=== PATIENT | male | born 1980 | race Hispanic/Latino ===

== ENCOUNTER 2022-03-21 09:11 | Emergency (ER) | payer OTHER ==
--- OUTSIDE RECORDS SUMMARY | 2022-03-21 09:20 | XMS REPORT | Continuity of Care Document ---
:[address] [facility] t Address [address] [place] [address] Care Team Providers Name Role Phone Joe Melgoza Attending Clinician Unavailable Kai Lee Attending Clinician Payers Payer Name Policy Type Policy Number Effective Date Expiration Date S jeison De Kalb Davonte [id number] 2022 2022 [facility] MCR 00:00:00 00:00:00 Spirit - C HI [facility] Problems Condition Condition Condition Status Onset Resolution Last Treating Co mments Source Name Details Category Date Date Treatment Clinician Date LT LEG LT LEG Diagnosis Active 2017-02-07 Me moria Active 11-27 10:37:00 l 11/27/2016 11:45: Bal[place]ond [facility] [place] POST POST Diagnosis Active 2016-11-29 Mem oria ACCIDENT ACCIDENT 11-27 14:22:00 l DRUG DRUG 09:00: Harry SCREEN SCREEN 00 Active 11/27/2016 [facility] [id number] Pain in Problem Commo n left ankle Spirit and joints - CHI of left foot [facility] [id number] Left sided Problem Com mon sciatica Spirit - [facility] [id number] Adult BMI Problem Com mon 45.0-49.9 Spirit kg/sq m - [facility] [id number] HTN, goal Problem Comm on below Spirit 140/90 - [facility] [id number] Peripheral Problem Com mon polyneurop Spirit athy - [facility] [id number] Type 2 Problem Common diabetes Spirit mellitus - CHI with other [facility] complicati [facility] Center [id number] 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 - CHI insulin [facility] [id number] Noncomplia Problem Co mmon nce with Spirit dietary - CHI restrictio [facility] [id number] Mixed Problem Common hyperlipid Spirit emia - CHI [facility] [id number] Vitamin D Problem Comm on deficiency Spirit disease - CHI [facility] [id number] Type 2 [place] [address] diabetes Spirit mellitus - CHI with other [facility] complicati Center on [id number] Hypertrigl Problem Co mmon yceridemia Spirit - [facility] [id number] History of Problem Co mmon diabetes Spirit with - CHI ketoacidos [facility] [id number] Subclinica Problem Com mon l Spirit hypothyroi - CHI dism [facility] [id number] Body mass Problem Com mon index Spirit [BMI] - CHI 32.0-32.9, [facility] 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 History of Past Illness Condition Condition Condition Status Onset Resolution Last Treating Co mments Source Name Details Category Date Date Treatment Clinician Date Unspecifie Unspecifi Problem 2016-2016-11-30 2016-11-30 Memoria d fall, ed fall, 11-27 00:33:42 00:33:42 l initial initial 05:00: Warrior encounter encounter 00 11/27/2016 11/30/2016 [facility] Sprain of Sprain of Problem 2016-2016-11-30 2016-11-30 Memoria unspecifie unspecifie 11-27 00:33:42 00:33:42 l d ligament d ligament 05:00: He rmann of left of left 00 ankle, ankle, initial initial encounter encounter 11/27/2016 11/30/2016 [facility] Allergies, Adverse Reactions, Alerts Allergy Allergy Status Severity Reaction(s) Onset Inactive Treating Comm ents Source Name Type Date Date Clinician 04437 Drug Active Unknown Common allergy [facility] Social History Social Habit Start Date Stop Date Quantity Comments Source Sex Assigned At Common Sp adali - [facility] History of Tobacco Common Spirit - Use [facility] Social History 2016-11-27 2016-11-27 Jacquelin reyes 17:31:02 17:31:02 Smoking Status Start Date Stop Date Source Never Smoker [facility] Medications Ordered Filled Start Stop Current Ordering Indication Dosage Frequency Signature Comments Components Source Medication Medication Date Date Medication? Clinician (SIG) Name Name ibuprofen No 600 mg = 1 Me moria 600 mg oral 11-27 tab, PO, l tablet 18:42: Q6H, PRN Harry 00 Pain, take with food, # 12 tab, 0 Refill(s) Acetaminoph No 1 tab, PO, Memoria en 300 MG / 11-27 Q4H, PRN l Codeine 18:42: for pain, Chanel nn Phosphate 00 # 12 tab, 30 MG Oral 0 Tablet Refill(s) [Tylenol with Codeine #3] Acetaminoph No Notes: Ricardo mae en 325 MG / 11-27 (Same as: l Hydrocodone 17:52: Brady Chanel nn Bitartrate 00 325/5) Do 5 MG Oral not exceed Tablet 4gm/day of acetaminop hen. Ketorolac No 4 days Memor ia 11-27 l 17:52: MEDICATION Warrior 00 WASTE Product Size: 30 mg Product Wasted: ___ mg Ibuprofen No Notes: Memori a 11-27 (Same as: l 17:18: Motrin) Harry 00 "Do Not Crush" Take with food. NovoLOG NovoLOG No TID NovoLOG FlexPen 100 FlexPen 100 FlexPen UNIT/ML UNIT/ML 100 UNIT/ML Triamterene Triamterene No QD Triamteren -HCTZ -HCTZ e-HCTZ 37.5-25 MG 37.5-25 MG 37.5-25 MG Fenofibrate Fenofibrate No 1{table QD Fenofibrat 145 MG 145 MG t_with_ e 145 MG food} Lisinopril Lisinopril No 1{table QD Lisinopril 5 MG 5 MG t} 5 MG Vitamin D3 Vitamin D3 No 1{table QD Vitamin D3 1000 UNIT 1000 UNIT t} 1000 UNIT NovoLOG NovoLOG No TID NovoLOG FlexPen 100 FlexPen 100 FlexPen UNIT/ML UNIT/ML 100 UNIT/ML NovoLOG Mix NovoLOG Mix No QD NovoLOG 70/30 70/30 Mix 70/30 FlexPen FlexPen FlexPen (70-30) 100 (70-30) 100 (70-30) UNIT/ML UNIT/ML 100 UNIT/ML Vitamin B12 Vitamin B12 No 1{table QD Vitamin 1000 MCG 1000 MCG t} B12 1000 MCG Allopurinol Allopurinol No QD Allopurino 300 MG 300 MG l 300 MG Fluconazole Fluconazole No Fluconazol 100 MG 100 MG e 100 MG Atorvastati Atorvastati No 1{table QD Atorvastat n Calcium n Calcium t} in Calcium 10 MG 10 MG 10 MG Victoza 18 Victoza 18 No QD Victoza 18 MG/3ML MG/3ML MG/3ML Colchicine Colchicine No 1{table QD Colchicine 0.6 MG 0.6 MG t} 0.6 MG Vitamin D3 Vitamin D3 No 1{capsu Vitamin D3 76354 UNIT 71477 UNIT le} 38590 UNIT Gabapentin Gabapentin No 1{capsu BID Gabapentin 600 MG 600 MG le} 600 MG Lisinopril Lisinopril No 1{table QD Lisinopril 5 MG 5 MG t} 5 MG Vitamin D3 Vitamin D3 No 1{table QD Vitamin D3 1000 UNIT 1000 UNIT t} 1000 UNIT NovoLOG NovoLOG No TID NovoLOG FlexPen 100 FlexPen 100 FlexPen UNIT/ML UNIT/ML 100 UNIT/ML NovoLOG Mix NovoLOG Mix No QD NovoLOG 70/30 70/30 Mix 70/30 FlexPen FlexPen FlexPen (70-30) 100 (70-30) 100 (70-30) UNIT/ML UNIT/ML 100 UNIT/ML Vitamin B12 Vitamin B12 No 1{table QD Vitamin 1000 MCG 1000 MCG t} B12 1000 MCG Allopurinol Allopurinol No QD Allopurino 300 MG 300 MG l 300 MG Fluconazole Fluconazole No Fluconazol 100 MG 100 MG e 100 MG Atorvastati Atorvastati No 1{table QD Atorvastat n Calcium n Calcium t} in Calcium 10 MG 10 MG 10 MG Victoza 18 Victoza 18 No QD Victoza 18 MG/3ML MG/3ML MG/3ML Colchicine Colchicine No 1{table QD Colchicine 0.6 MG 0.6 MG t} 0.6 MG Vitamin D3 Vitamin D3 No 1{capsu Vitamin D3 56418 UNIT 67971 UNIT le} 78869 UNIT Gabapentin Gabapentin No 1{capsu BID Gabapentin 600 MG 600 MG le} 600 MG Lisinopril Lisinopril No 1{table QD Lisinopril 5 MG 5 MG t} 5 MG Vitamin D3 Vitamin D3 No 1{table QD Vitamin D3 1000 UNIT 1000 UNIT t} 1000 UNIT NovoLOG NovoLOG No TID NovoLOG FlexPen 100 FlexPen 100 FlexPen UNIT/ML UNIT/ML 100 UNIT/ML NovoLOG Mix NovoLOG Mix No QD NovoLOG 70/30 70/30 Mix 70/30 FlexPen FlexPen FlexPen (70-30) 100 (70-30) 100 (70-30) UNIT/ML UNIT/ML 100 UNIT/ML Vitamin B12 Vitamin B12 No 1{table QD Vitamin 1000 MCG 1000 MCG t} B12 1000 MCG Allopurinol Allopurinol No QD Allopurino 300 MG 300 MG l 300 MG Fluconazole Fluconazole No Fluconazol 100 MG 100 MG e 100 MG Atorvastati Atorvastati No 1{table QD Atorvastat n Calcium n Calcium t} in Calcium 10 MG 10 MG 10 MG Victoza 18 Victoza 18 No QD Victoza 18 MG/3ML MG/3ML MG/3ML Colchicine Colchicine No 1{table QD Colchicine 0.6 MG 0.6 MG t} 0.6 MG Vitamin D3 Vitamin D3 No 1{capsu Vitamin D3 83817 UNIT 34864 UNIT le} 67092 UNIT Gabapentin Gabapentin No 1{capsu BID Gabapentin 600 MG 600 MG le} 600 MG Vitamin D3 Vitamin D3 No 1{capsu Vitamin D3 78320 UNIT 20156 UNIT le} 55240 UNIT Gabapentin Gabapentin No 1{capsu TID Gabapentin 300 MG 300 MG le} 300 MG Fluconazole Fluconazole No Fluconazol 100 MG 100 MG e 100 MG Colchicine Colchicine No 1{table QD Colchicine 0.6 MG 0.6 MG t} 0.6 MG Vitamin B12 Vitamin B12 No 1{table QD Vitamin 1000 MCG 1000 MCG t} B12 1000 MCG Victoza 18 Victoza 18 No QD Victoza 18 MG/3ML MG/3ML MG/3ML Allopurinol Allopurinol No QD Allopurino 300 MG 300 MG l 300 MG Vitamin D3 Vitamin D3 No 1{table QD Vitamin D3 1000 UNIT 1000 UNIT t} 1000 UNIT NovoLOG Mix NovoLOG Mix No QD NovoLOG 70/30 70/30 Mix 70/30 FlexPen FlexPen FlexPen (70-30) 100 (70-30) 100 (70-30) UNIT/ML UNIT/ML 100 UNIT/ML Atorvastati Atorvastati No 1{table QD Atorvastat n Calcium n Calcium t} in Calcium 80 MG 80 MG 80 MG amLODIPine amLODIPine No QD amLODIPine Besylate 10 Besylate 10 Besylate MG MG 10 MG Lisinopril Lisinopril No 1{table QD Lisinopril 2.5 MG 2.5 MG t} 2.5 MG NovoLOG NovoLOG No TID NovoLOG FlexPen 100 FlexPen 100 FlexPen UNIT/ML UNIT/ML 100 UNIT/ML Triamterene Triamterene No QD Triamteren -HCTZ -HCTZ e-HCTZ 37.5-25 MG 37.5-25 MG 37.5-25 MG Fenofibrate Fenofibrate No 1{table QD Fenofibrat 145 MG 145 MG t_with_ e 145 MG food} Victoza 18 Victoza 18 No QD Victoza 18 MG/3ML MG/3ML MG/3ML NovoLOG NovoLOG No TID NovoLOG FlexPen 100 FlexPen 100 FlexPen UNIT/ML UNIT/ML 100 UNIT/ML Lisinopril Lisinopril No 1{table QD Lisinopril 2.5 MG 2.5 MG t} 2.5 MG Vitamin D3 Vitamin D3 No 1{table QD Vitamin D3 1000 UNIT 1000 UNIT t} 1000 UNIT Vitamin B12 Vitamin B12 No 1{table QD Vitamin 1000 MCG 1000 MCG t} B12 1000 MCG Vitamin D3 Vitamin D3 No 1{capsu Vitamin D3 65095 UNIT 67080 UNIT le} 93102 UNIT Fenofibrate Fenofibrate No 1{table QD Fenofibrat 145 MG 145 MG t_with_ e 145 MG food} Gabapentin Gabapentin No TID Gabapentin 300 MG 300 MG 300 MG Allopurinol Allopurinol No QD Allopurino 300 MG 300 MG l 300 MG amLODIPine amLODIPine No QD amLODIPine Besylate 10 Besylate 10 Besylate MG MG 10 MG Colchicine Colchicine No 1{table QD Colchicine 0.6 MG 0.6 MG t} 0.6 MG Triamterene Triamterene No QD Triamteren -HCTZ -HCTZ e-HCTZ 37.5-25 MG 37.5-25 MG 37.5-25 MG Fluconazole Fluconazole No Fluconazol 100 MG 100 MG e 100 MG NovoLOG Mix NovoLOG Mix No QD NovoLOG 70/30 70/30 Mix 70/30 FlexPen FlexPen FlexPen (70-30) 100 (70-30) 100 (70-30) UNIT/ML UNIT/ML 100 UNIT/ML Atorvastati Atorvastati No 1{table QD Atorvastat n Calcium n Calcium t} in Calcium 80 MG 80 MG 80 MG Vitamin D3 Vitamin D3 No 1{capsu Vitamin D3 57189 UNIT 65462 UNIT le} 66762 UNIT Gabapentin Gabapentin No 1{capsu TID Gabapentin 300 MG 300 MG le} 300 MG Fluconazole Fluconazole No Fluconazol 100 MG 100 MG e 100 MG Colchicine Colchicine No 1{table QD Colchicine 0.6 MG 0.6 MG t} 0.6 MG Vitamin B12 Vitamin B12 No 1{table QD Vitamin 1000 MCG 1000 MCG t} B12 1000 MCG Victoza 18 Victoza 18 No QD Victoza 18 MG/3ML MG/3ML MG/3ML Allopurinol Allopurinol No QD Allopurino 300 MG 300 MG l 300 MG Vitamin D3 Vitamin D3 No 1{table QD Vitamin D3 1000 UNIT 1000 UNIT t} 1000 UNIT NovoLOG Mix NovoLOG Mix No QD NovoLOG 70/30 70/30 Mix 70/30 FlexPen FlexPen FlexPen (70-30) 100 (70-30) 100 (70-30) UNIT/ML UNIT/ML 100 UNIT/ML Atorvastati Atorvastati No 1{table QD Atorvastat n Calcium n Calcium t} in Calcium 80 MG 80 MG 80 MG Vitamin D3 Vitamin D3 Yes Joe 1 capsule Common Melgoza [facility] Fluconazole Fluconazole Yes Joe TAKE 1 Common Melgoza TABLET BY Spirit MOUTH ON - CHI MONDAY, St MONDAY, AND MONDAY [facility] Center FINISHED Atorvastati Atorvastati Yes Joe 1 tablet Common n Calcium n Calcium Melgoza Spir it - CHI [facility] Lisinopril Lisinopril Yes Joe 1 tablet Common Melgoza [facility] Allopurinol Allopurinol Yes Joe take 1 Common Melgoza tablet by Spirit mouth - daily [facility] Vitamin D3 Vitamin D3 Yes Joe 1 tablet Common Melgoza [facility] Colchicine Colchicine Yes Joe 1 tablet Common Melgoza [facility] Amlodipine Amlodipine Yes Joe take 1 Common Besylate Besylate Melgoza tablet by S pirit mouth - CHI every day [facility] NovoLog NovoLog Yes Joe inject 20 Co mmon Flexpen Flexpen Melgoza units Spirit under the - CHI skin [facility] Gabapentin Gabapentin Yes Joe take one Common Melgoza capsule by Spirit mouth 3 - CHI times a [facility] Pravastatin Pravastatin Yes Joe take 1 Common Sodium Sodium Melgoza tablet by Spiri t mouth at - CHI bedtime [facility] Fenofibrate Fenofibrate Yes Joe 1 tablet Common Melgoza with food [facility] Victoza Victoza Yes Joe 1.8 mg Commo n Melgoza [facility] Vitamin B12 Vitamin B12 Yes Joe 1 tablet Common Melgoza [facility] Triamterene Triamterene Yes Joe take 1 Common -HCTZ -HCTZ Melgoza capule by Spirit mouth with - CHI orange [facility] NovoLog Mix NovoLog Mix Yes Joe inject 65 Common 70/30 70/30 Melgoza units Spirit Flexpen Flexpen [facility] amLODIPine amLODIPine No QD amLODIPine Besylate 10 Besylate 10 Besylate MG MG 10 MG Lisinopril Lisinopril No 1{table QD Lisinopril 2.5 MG 2.5 MG t} 2.5 MG Allopurinol Allopurinol 2019- No Joe take 1 Common 08-07 Melgoza tablet by Spirit 00:00 mouth - CHI :00 daily [facility] Immunizations Ordered Immunization Filled Immunization Date Status Commen ts Source Name Name Prevnar 20 (PCV20) Prevnar 20 (PCV20) 2022-02-07 Completed Common Spirit 16:11:00 [facility] Prevnar 20 (PCV20) Prevnar 20 (PCV20) 2022-02-07 Completed Common Spirit 16:11:00 - [facility] Prevnar 20 (PCV20) Prevnar 20 (PCV20) 2022-02-07 Completed Common Spirit 16:11:00 [facility] Prevnar 20 (PCV20) Prevnar 20 (PCV20) 2022-02-07 Completed Common Spirit 16:11:00 - [facility] Prevnar 20 (PCV20) Prevnar 20 (PCV20) 2022-02-07 Completed Common Spirit 16:11:00 - [facility] Flucelvax - single Flucelvax - single 2022-02-07 Completed Common Spirit dose syringe dose syringe 16:10:00 - [facility] Flucelvax - single Flucelvax - single 2022-02-07 Completed Common Spirit dose syringe dose syringe 16:10:00 - [facility] Flucelvax - single Flucelvax - single 2022-02-07 Completed Common Spirit dose syringe dose syringe 16:10:00 - [facility] Flucelvax - single Flucelvax - single 2022-02-07 Completed Common Spirit dose syringe dose syringe 16:10:00 - [facility] Flucelvax - single Flucelvax - single 2022-02-07 Completed Common Spirit dose syringe dose syringe 16:10:00 - [facility] Vital Signs Vital Name Observation Time Observation Value Comments Source height 2022-02-23 14:20:00 69 [in_i] [facility] weight 2022-02-23 14:20:00 217.2 [lb_av] [facility] temperature 2022-02-23 14:20:00 98.0 [degF] [facility] bmi 2022-02-23 14:20:00 32.07 kg/m2 [facility] oximetry 2022-02-23 14:20:00 97 % [facility] respiratory rate 2022-02-23 14:20:00 17 /min Comm on [facility] blood pressure 2022-02-23 14:20:00 137 mm[Hg] Common [facility] - systolic [facility] blood pressure 2022-02-23 14:20:00 73 mm[Hg] [facility] [place] [place] - diastolic [facility] height 2022-02-07 15:30:00 69 [in_i] Common [facility] weight 2022-02-07 15:30:00 217.9 [lb_av] Common [facility] temperature 2022-02-07 15:30:00 98.0 [degF] Common [facility] bmi 2022-02-07 15:30:00 32.17 kg/m2 Common [facility] oximetry 2022-02-07 15:30:00 97 % [facility] respiratory rate 2022-02-07 15:30:00 17 /min Comm on [facility] blood pressure 2022-02-07 15:30:00 142 mm[Hg] Common [facility] systolic [facility] blood pressure 2022-02-07 15:30:00 79 mm[Hg] Common [facility] - diastolic [facility] Temperature Oral (F) 2016-11-27 19:17:00 97.8 F [facility] Heart Rate 2016-11-27 19:17:00 [facility] Respitory Rate 2016-11-27 19:17:00 Memori al [facility] Systolic (mm Hg) 2016-11-27 19:17:00 Ricardo rial [facility] Diastolic (mm Hg) 2016-11-27 19:17:00 Mem orial [facility] BMI Calculated 2016-11-27 17:17:00 Memori al [facility] Weight 2016-11-27 17:17:00 [facility] Height 2016-11-27 17:17:00 177.8 cm [facility] Temperature Oral (F) 2016-11-27 17:17:00 98 F [facility] Respitory Rate 2016-11-27 17:17:00 Memori al [facility] Heart Rate 2016-11-27 17:17:00 [facility] Systolic (mm Hg) 2016-11-27 17:17:00 Ricardo rial Harry Diastolic (mm Hg) 2016-11-27 17:17:00 Mem orial Harry Procedures This patient has no known procedures. Encounters Start End Encounter Admission Attending Care Care Encounter Source Date/Time Date/Time Type Type Clinicians Facility Department ID 2022-03-14 Outpatient Abad [facility] [id number] Common 15:07:00 Joe [facility] 2022-02-26 Outpatient Melgoza, STLMLC STLMLC [id number] Common 11:51:00 Joe [facility] 2022-02-24 Outpatient Melgoza, STLMLC STLMLC [id number] Common 10:28:00 Joe [facility] 2022-02-21 Outpatient Melgoza, STLMLC STLMLC [id number] Common 15:39:00 Joe [facility] 2022-01-05 Outpatient Melgoza, STLMLC STLMLC [id number] Common 08:46:00 Joe [facility] 2021-05-19 Outpatient Melgoza, STLMLC STLMLC [id number] Common 11:46:23 Joe [id number] [facility] 2021-05-19 Outpatient Melgoza, STLMLC STLMLC [id number] Common 11:06:04 Joe [id number] [facility] 2021-05-19 Outpatient Melgoza, STLMLC STLMLC [id number] Common 11:03:23 Joe [id number] [facility] 2022-03-14 2022-03-14 (TEL) STLMLC STLMLC [id number] Co mmon 00:00:00 00:00:00 [facility] 2022-02-25 2022-02-25 (TEL) STLMLC STLMLC [id number] Co mmon 00:00:00 00:00:00 [facility] 2022-02-23 2022-02-23 OFFICE STLMLC STLMLC [id number] Co mmon 00:00:00 00:00:00 VISIT [facility] LEVEL 4 [facility] 2022-02-07 2022-02-07 (WELLNESS) STLMLC STLMLC [id number] Common 00:00:00 00:00:00 Wellness Spiri t [facility] 2022-01-05 2022-01-05 (TEL) STLMLC STLMLC [id number] Co mmon 00:00:00 00:00:00 [facility] 2019-11-29 2019-11-29 [id number] Common 08:30:00 08:30:[address] [facility] 2019-05-09 2019-05-09 [facility] [id number] Common 15:02:00 15:02:[address] [facility] 2019-04-09 2019-04-09 [facility] [id number] Common 08:24:00 08:24:[address] [facility] 2019-03-26 2019-03-26 [facility] [id number] Common 12:19:00 12:19:[address] [facility] 2019-03-26 2019-03-26 [facility] [id number] Common 10:30:00 10:30:[address] [facility] 2019-03-19 2019-03-19 [facility] [id number] Common 13:25:00 13:25:[address] [facility] 2019-03-19 2019-03-19 [facility] [id number] Common 11:47:00 11:47:[address] [facility] 2019-01-24 2019-01-24 [facility] [id number] Common 08:00:00 08:00:[address] [facility] 2018-11-30 2018-11-30 [facility] [id number] Common 15:21:00 15:21:[address] [facility] 2018-11-30 2018-11-30 [facility] [id number] Common 10:00:00 10:00:[address] [facility] 2018-11-07 2018-11-07 [facility] [id number] Common 10:30:00 10:30:[address] [facility] 2018-08-15 2018-08-15 [facility] [id number] Common 15:30:00 15:30:[address] [facility] 2016-11-27 2016-11-27 Emergency [facility] [id number] [facility] 17:09:00 20:03:00 georges Mcdonald 00 l [facility] 2016-11-27 2016-11-27 Outpatient Kai Lee [facility] [id number] 12:09:00 15:03:00 K 00 Results This patient has no known results.
--- NOTE | 2022-03-21 10:45 | RAD REPORT ---
EXAM DESCRIPTION: RAD - Chest Single View - 03/21/2022 10:23 am CLINICAL HISTORY: CHEST PAIN Chest pain. COMPARISON: Chest Pa And Lat (2 Views) dated 01/26/2016 FINDINGS: Portable technique limits examination quality. The lungs are grossly clear. The heart is normal in size. No displaced fractures. IMPRESSION: No acute intrathoracic process suspected.
[2022-03-21 12:25] LABS: Absolute Lymphocytes (CBC) 2.3 K/uL (0.7-4.9); Hematocrit 45.2 % (39.6-49.0); Lymphocytes % 31.4 % (15.3-44.8); MCV 88.4 fL (80-100); MPV 7.5 fL (7.6-11.3); RBC Red Blood Cell Count 5.11 M/uL (4.33-5.43)
[2022-03-21 12:46] LABS: Albumin 3.6 g/dL (3.4-5.0); Bilirubin Total 0.6 mg/dL (0.2-1.0); Potassium 3.9 mmol/L (3.5-5.1); Protein, Total 7.6 g/dL (6.4-8.2); Troponin High Sensitivity 7.5 pg/mL (<58.9)
--- NOTE | 2022-03-21 14:27 | RAD REPORT ---
EXAM DESCRIPTION: CTAbdomen Pelvis W Contrast - 03/21/2022 2:15 pm CLINICAL HISTORY: upper abd pain COMPARISON: No comparisons TECHNIQUE: CT of the abdomen and pelvis was performed with IV contrast. All CT scans are performed using dose optimization technique as appropriate and may include automated exposure control or mA/KV adjustment according to patient size. FINDINGS: Lower chest: Mild circumferential thickened distal esophagus. Liver: No acute abnormality or suspicious lesions. Biliary: No biliary ductal dilatation. Stomach: Possible wall thickening and edema at the gastric antrum. Duodenum: No significant focal abnormality. Pancreas: No significant abnormality. Spleen: No significant abnormality. Adrenal: No suspicious lesions. Kidney/ureter: No hydronephrosis. No renal calculi. Retroperitoneum: No retroperitoneal adenopathy. Vascular: No aneurysm. Bowel: No significant focal abnormality. Appendix is normal. Peritoneum: No ascites or free air. Small fat containing inguinal hernias. Bladder: Grossly unremarkable. Reproductive: No adnexal masses. Bones: No acute fracture. Other: n/a IMPRESSION: No acute intra-abdominal or pelvic finding. Circumferential thickened distal esophagus a nd possible gastric antral thickening could reflect esophagitis and gastritis, respectively. Endoscop y could better evaluate. Normal appendix.
--- NOTE | 2022-03-21 14:35 | ER ---
Nurse's Notes [facility] Name: Renato Davis Age: 41 yrs Sex: Male : 1980 Arrival Date: 03/21/2022 Time: 09:18 Bed 11 Private MD: Diagnosis: Abdominal pain, Generalized;Chest pain, unspecified Presentation: 03/21 09:39 Chief complaint: Patient states: Abd cramping, muscle aches/ cramps that has been ss intermittent since November. Also c/o CP and SOB that began this morning, but has since resolved, lasting 30 minutes. Coronavirus screen: Client denies travel out of the [place] in the last 14 days. Ebola Screen: Patient denies exposure to infectious person. Patient denies travel to an Ebola-affected area in the 21 days before illness onset. Initial Sepsis Screen: Does the patient meet any 2 criteria? No. Patient's initial sepsis screen is negative. Does the patient have a suspected source of infection? No. Patient's initial sepsis screen is negative. Risk Assessment: Do you want to hurt yourself or someone else? Patient reports no desire to harm self or others. Onset of symptoms was November 2021. 09:39 Method Of Arrival: Ambulatory ss 09:39 Acuity: CELENA 3 ss Triage Assessment: 12:00 General: Appears in no apparent distress. Behavior is cooperative. Pain: Complains of em6 pain in right arm, left arm, right leg and left leg Pain does not radiate. Pain currently is 10 out of 10 on a pain scale. Historical: - Allergies: 09:44 No Known Allergies; ss - Home Meds: 09:44 Lisinopril Oral [Active]; ss - PMHx: 09:44 Hypertensive disorder; ss - PSHx: 09:44 Tonsillectomy; ss - Immunization history:: Client reports having NOT received the Covid vaccine. - Social history:: Smoking status: Patient denies any tobacco usage or history of. Screenin:00 Abuse screen: Denies threats or abuse. Nutritional screening: No deficits noted. em6 Tuberculosis screening: No symptoms or risk factors identified. Fall Risk IV access (20 points). Assessment: 12:00 General: Appears comfortable, Behavior is cooperative. Pain: Complains of pain in right em6 arm, left arm, right leg and left leg. Neuro: Level of Consciousness is awake, alert, obeys commands, Oriented to person, place, time, situation. Cardiovascular: Patient's skin is warm and dry. Respiratory: Airway is patent Respiratory effort is even, labored, Respiratory pattern is regular, symmetrical, Breath sounds are clear bilaterally. GI: Abdomen is non-distended, Bowel sounds present X 4 quads. Abd is soft and non tender X 4 quads. : No signs and/or symptoms were reported regarding the genitourinary system. EENT: No signs and/or symptoms were reported regarding the EENT system. Derm: No signs and/or symptoms reported regarding the dermatologic system. Musculoskeletal: Circulation, motion, and sensation intact. Range of motion: intact in all extremities, Reports pain all over body. 13:00 Reassessment: No changes from previously documented assessment. Patient and/or family em6 updated on plan of care and expected duration. Pain level reassessed. Patient is alert, oriented x 3, equal unlabored respirations, skin warm/dry/pink. 14:00 Reassessment: Patient appears in no apparent distress at this time. No changes from em6 previously documented assessment. Patient and/or family updated on plan of care and expected duration. Pain level reassessed. Patient is alert, oriented x 3, equal unlabored respirations, skin warm/dry/pink. Vital Signs: 09:39 BP 124 / 97; Pulse 93; Resp 20; Temp 98.5(O); Pulse Ox 99% on R/A; Weight 97.52 kg; Height 5 ft. 10 in. (177.80 cm); 12:00 BP 134 / 92; Pulse 86; Resp 19; Pulse Ox 100% on R/A; em6 13:00 BP 128 / 86; Pulse 84; Resp 18; Pulse Ox 99% on R/A; em6 14:00 BP 134 / 84; Pulse 86; Resp 18; Pulse Ox 99% on R/A; em6 09:39 Body Mass Index 30.85 (97.52 kg, 177.80 cm) ED Course: 09:18 Patient arrived in ED. rg4 09:19 Janneth Kraft FNP-C is [facility]. kb 09:19 Shoaib Dial DO is Attending Physician. kb 09:44 Triage completed. ss 09:44 Arm band placed on left wrist. ss 10:24 XRAY Chest (1 view) In Process Unspecified. EDMS 12:00 Placed in gown. Bed in low position. Call light in reach. Side rails up X2. Pulse ox em6 on. NIBP on. Warm blanket given. 12:03 Nannette Jalloh, RN is Primary Nurse. em6 12:20 Inserted saline lock: 20 gauge in right antecubital area, using aseptic technique. em6 Blood collected. 14:17 CT Abd/Pelvis - IV Contrast Only In Process Unspecified. EDMS 14:45 No provider procedures requiring assistance completed. IV discontinued, intact, em6 bleeding controlled, No redness/swelling at site. Pressure dressing applied. Administered Medications: No medications were administered Medication: 14:45 VIS not applicable for this client. em6 Outcome: 14:35 Discharge ordered by . kb 14:45 Discharged to home ambulatory. em6 14:45 Condition: stable 14:45 Discharge instructions given to patient, Instructed on discharge instructions, follow up and referral plans. medication usage, Demonstrated understanding of instructions, follow-up care, medications, Prescriptions given X 2. 14:45 Patient left the ED. em6 Signatures: Dispatcher [employer] EDJanneth Alberto, SOLUTIONS ARCHITECT CONSULTANT-C SOLUTIONS ARCHITECT CONSULTANT-eRbeka Britton, DAVID RN Susan Sofia rg4 Nannette Jalloh, RN RN em6
--- NOTE | 2022-03-21 14:35 | EDPHYS ---
Physician Documentation [facility] Name: Renato Davis Age: 41 yrs Sex: Male : 1980 Arrival Date: 03/21/2022 Time: 09:18 Bed 11 Private MD: ED Physician Shoaib Dial HPI: 03/21 20:12 This 41 yrs old Male presents to ER via Ambulatory with complaints of Pain All kb Over. 20:09 The pain does not radiate. Associated signs and symptoms: Pertinent positives: kb abdominal pain, shortness of breath. The chest pain is described as sharp. Duration: The patient or guardian reports a single episode, that is now resolved. Modifying factors: The symptoms are alleviated by nothing. the symptoms are aggravated by nothing. Severity of pain: At its worst the pain was mild in the emergency department the pain has resolved. The patient has not experienced similar symptoms in the past. The patient has not recently seen a physician. Pt reports he has had abd cramping and pain, as well as pain in arms and legs with neuropathy in hands and feet since November. States he had some chest pain and shortness of breath this morning for about 30 minutes so he wanted to get everything checked out. 20:12 The patient or guardian reports chest pain that is located primarily in the anterior kb chest wall. Onset: this morning. Historical: - Allergies: 09:44 No Known Allergies; ss - Home Meds: 09:44 Lisinopril Oral [Active]; ss - PMHx: 09:44 Hypertensive disorder; ss - PSHx: 09:44 Tonsillectomy; ss - Immunization history:: Client reports having NOT received the Covid vaccine. - Social history:: Smoking status: Patient denies any tobacco usage or history of. ROS: 20:01 Constitutional: Negative for fever, chills, and weight loss. kb 20:01 Cardiovascular: Positive for chest pain. 20:01 Respiratory: Positive for shortness of breath. 20:01 Abdomen/GI: Positive for abdominal cramps. 20:01 MS/extremity: Positive for muscle aches in legs. 20:01 Neuro: Positive for neuropathy in hands and feet. 20:01 All other systems are negative. Exam: 13:42 Constitutional: This is a well developed, well nourished patient who is awake, alert, kb and in no acute distress. Head/Face: Normocephalic, atraumatic. ENT: Moist Mucous membranes Cardiovascular: Regular rate and rhythm with a normal S1 and S2. No gallops, murmurs, or rubs. No pulse deficits. Respiratory: Respirations even and unlabored. No increased work of breathing. Talking in full sentences Abdomen/GI: Soft, non-tender. No distention Skin: Warm, dry with normal turgor. Normal color. MS/ Extremity: Pulses equal, no cyanosis. Neurovascular intact. Full, normal range of motion. Neuro: Awake and alert, GCS 15, oriented to person, place, time, and situation. Moves all extremities. Normal gait. Psych: Awake, alert, with orientation to person, place and time. Behavior, mood, and affect are within normal limits. 13:42 ECG was reviewed by the Attending Physician. Vital Signs: 09:39 BP 124 / 97; Pulse 93; Resp 20; Temp 98.5(O); Pulse Ox 99% on R/A; Weight 97.52 kg; ss Height 5 ft. 10 in. (177.80 cm); 12:00 BP 134 / 92; Pulse 86; Resp 19; Pulse Ox 100% on R/A; em6 13:00 BP 128 / 86; Pulse 84; Resp 18; Pulse Ox 99% on R/A; em6 14:00 BP 134 / 84; Pulse 86; Resp 18; Pulse Ox 99% on R/A; em6 09:39 Body Mass Index 30.85 (97.52 kg, 177.80 cm) ss MDM: 09:27 Patient medically screened. kb 20:00 Data reviewed: vital signs, nurses notes. Data reviewed: I have discussed the patient's kb presentation/case with the attending Emergency Department Physician;. Data interpreted: Pulse oximetry: on room air is 99 %. Interpretation: normal. Counseling: I had a detailed discussion with the patient and/or guardian regarding: the historical points, exam findings, and any diagnostic results supporting the discharge/admit diagnosis, lab results, radiology results, the need for outpatient follow up, a family practitioner, to return to the emergency department if symptoms worsen or persist or if there are any questions or concerns that arise at home. 03/21 09:27 Order name: CBC with Diff; Complete Time: 12:36 kb 03/21 09:27 Order name: Magnesium; Complete Time: 12:59 kb 03/21 09:27 Order name: NT PRO-BNP; Complete Time: 12:59 kb 03/21 09:27 Order name: Troponin HS; Complete Time: 12:59 kb 03/21 09:27 Order name: CMP; Complete Time: 12:59 kb 03/21 09:27 Order name: Lipase; Complete Time: 12:59 kb 03/21 09:27 Order name: XRAY Chest (1 view); Complete Time: 11:08 kb 03/21 09:27 Order name: EKG; Complete Time: 09:28 kb 03/21 09:27 Order name: Cardiac monitoring; Complete Time: 12:20 kb 03/21 09:27 Order name: EKG - Nurse/Tech; Complete Time: 12:20 kb 03/21 09:27 Order name: IV Saline Lock; Complete Time: 12:20 kb 03/21 09:27 Order name: Labs collected and sent; Complete Time: 12:20 kb 03/21 09:27 Order name: O2 Per Protocol; Complete Time: 12:20 kb 03/21 13:00 Order name: CT Abd/Pelvis - IV Contrast Only; Complete Time: 14:28 kb 03/21 09:27 Order name: O2 Sat Monitoring; Complete Time: 12:20 kb EC:42 Rate is 77 beats/min. Rhythm is regular. QRS [place] is Normal. [place] interval is normal at kb 182 msec. QRS interval is normal at 104 msec. QT interval is normal at 418 msec. Administered Medications: No medications were administered Disposition: 19:14 Co-signature as Attending Physician, Shoaib PARIKH was immediately available on-site ms3 in the Emergency Department for consultation in the care of the patient.. Disposition Summary: 03/21/22 14:35 Discharge Ordered Location: Home kb Condition: Stable kb Diagnosis - Abdominal pain, Generalized kb - Chest pain, unspecified kb Followup: kb - With: Emergency Department - When: As needed - Reason: Worsening of condition Followup: kb - With: Private Physician - When: 2 - 3 days - Reason: Recheck today's complaints, Continuance of care, Re-evaluation by your physician Discharge Instructions: - Discharge Summary Sheet kb - Abdominal Pain, Adult, [id number] kb - Nonspecific Chest Pain, Adult, [id number] kb Forms: - Medication Reconciliation Form kb - Thank You Letter kb - Antibiotic Education kb - Prescription Opioid Use kb Prescriptions: - Protonix 40 mg Oral Tablet - take 1 tablet by ORAL route once daily; 30 tablet; Refills: 0, Product kb Selection Permitted - dicyclomine 20 mg Oral Tablet - take 1 tablet by ORAL route 4 times per day As needed; 20 tablet; Refills: 0, kb Product Selection Permitted Signatures: Dispatcher [employer] Janneth De Los Santos, MORELIA-Rebeka Gorman, RN RN ss Shoaib Dial, DO ms3
[2022-03-21 14:50] VITALS: TEMP 98.5
[2022-03-21 14:52] VITALS: O2SAT 99
[2022-03-21 14:54] VITALS: BP 134/84
--- NOTE | 2022-03-23 16:31 | EKG ---
Test Date: 2022-03-21 Test Time: 12:12:15 Manager Transition: MEASUREMENT RESULTS: Intervals: Rate: 77 MI: 182 QRSD: 104 QT: 370 QTc: 418 [place]: P: 61 MI: 182 QRS: -19 T: 47 INTERPRETIVE STATEMENTS: Normal sinus rhythm Incomplete right bundle branch block Borderline ECG No previous ECG available for comparison Electronically Signed On 03-23-22 16:23:52 MARKETING ACCOUNT EXECUTIVE by Carlin Conway
== END 2022-03-21 14:45 | disposition home or self-care (01) ==
LOC: ER 09:11
DX: R10.84 Generalized abdominal pain (principal); R07.9 Chest pain, unspecified; I10 Essential (primary) hypertension
CPT/HCPCS: 85025; 36415; 83735; 84484; 83690; 80053; 83880; 74177; 71045; Q9967; 93005; 99284